=== PATIENT | female | born 1945 | race Caucasian/White ===

== ENCOUNTER 2025-09-21 10:57 | Emergency (ER) | payer MEDICARE, SELFPAY ==
[2025-09-21] VITALS (13 sets, daily range): BP systolic 129–185; BP diastolic 61–79; PULSE 60–87; RESP 14–16; TEMP 36.6; O2SAT 87–99; BMI 17.2
--- NOTE | 2025-09-21 11:11 | ED_ITS ---
HPI - General Adult General Chief complaint: Fall Stated complaint: Poss Lt broken hip Time Seen by Provider: 09/21/25 11:03 History of Present Illness HPI narrative: 80-year-old woman with a history of hypertension had a mechanical fall at home landing on her left hip on a tile floor. Unable to get off the floor. Complains of significant left hip pain. No other injuries Related Data Allergies Allergy/AdvReac Type Severity Reaction Status Date / Time Penicillins Allergy Verified 09/21/25 11:23 Review of Systems Review of Systems Narrative: Pertinent positive and negative findings as per HPI Exam Initial Vital Signs Initial Vital Signs: Vital Signs Temperature 97.9 F 09/21/25 11:20 Pulse Rate 81 09/21/25 11:20 Respiratory Rate 16 09/21/25 11:20 Blood Pressure 185/79 H 09/21/25 11:20 Pulse Oximetry 95 09/21/25 11:20 Oxygen Delivery Method Room Air 09/21/25 11:20 General: Slender to the point of frailty, in a wheelchair with left hip pain Able to give a complete and coherent history. HEENT: Moist mucous membranes, normal sclera with reactive pupils, Respiratory: Lungs are clear to auscultation, no wheezing no rales no rhonchi. Full and symmetrical air movement Cardiac: Regular rate and rhythm no murmurs no bruits Abdomen: Soft, nontender, no rebound or guarding, no flank pain No pelvic ring pain with manipulation. No tenderness to lumbar thoracic spine with palpation Skin: Warm and dry, Neurologic: Grossly neurologically intact with no obvious asymmetries or abnormalities Extremities: Left leg with tenderness with external rotation of the hip and inability to bear weight on this side Psych: Cooperative, appropriate insight and affect Course Orders Ordered: ED Orders 09/21/25 11:21 XR hip w pel LT 2V Stat 09/21/25 13:56 CT pelvis wo con Stat 09/21/25 14:48 Complete Blood Count AUTO DIFF Stat Comprehensive Metabolic Panel Stat 09/21/25 17:49 CBC Auto Diff [Complete Blood Count AUTO DIFF] Stat UA Complete [Urinalysis and Microscopic] Stat Fentanyl (Fentanyl 100 Mcg/2 Ml Inj) 12.5 mcg IV Q1H PRN PRN Reason: Pain, Severe (7-10) Last Admin: 09/21/25 17:07 Dose: 12.5 mcg Documented By: SB Discontinued Medications Hydromorphone HCl (Hydromorphone Hcl 0.5 Mg/0.5 Ml Syringe) 0.5 mg IV Q15MIN PRN PRN Reason: Pain, Last Admin: 09/21/25 11:44 Dose: 0.5 mg Documented By: SB Ondansetron HCl (Ondansetron 4 Mg/2 Ml Inj) 4 mg IV NOW ONE Stop: 09/21/25 11:59 Last Admin: 09/21/25 11:57 Dose: 4 mg Documented By: SB Vital Signs Vital signs: Vital Signs - 8 hr 09/21/25 11:20 09/21/25 13:47 09/21/25 14:00 Temperature 97.9 F Pulse Rate 81 71 75 Respiratory Rate 16 14 16 Blood Pressure 185/79 H 135/61 143/63 H Pulse Oximetry 95 87 L 99 Oxygen Delivery Method Room Air Room Air Nasal Cannula Oxygen Flow Rate 2 09/21/25 14:30 Temperature Pulse Rate 70 Respiratory Rate 14 Blood Pressure 146/65 H Pulse Oximetry 98 Oxygen Delivery Method Oxygen Flow Rate Medical Decision Making Lab Data 09/21/25 18:04 09/21/25 14:48 Labs: Lab Results 09/21/25 09/21/25 Range/Units 14:48 18:04 WBC 20.7 H 19.3 H (4.5-11.0) X10^3/uL RBC 4.95 4.77 (4.0-5.2) X10^6/uL Hgb 14.8 14.3 (12.0-16.0) g/dL Hct 44.5 42.9 (36-46) % MCV 89.9 89.8 (80-100) fL MCH 29.9 30.0 (26-34) PG MCHC 33.2 33.4 (30-36) % RDW 13.6 13.7 (11.6-14.8) % Plt Count 226 215 (150-400) X10^3/uL Neut % (Auto) 91.6 H 93.4 H (50-75) % Lymph % (Auto) 2.5 L 2.0 L (25-40) % [place] % (Auto) 5.5 4.5 (3-14) % Eos % (Auto) 0.0 L 0.0 L (2-4) % Baso % (Auto) 0.4 0.1 (0-2) % Neut # (Auto) 32297 H 03724 H (4311-0657) /uL Lymph # (Auto) 500 L 400 L (8825-6088) /uL [place] # (Auto) 1100 H 900 (0-900) /uL Eos # (Auto) 0 0 (0-450) /uL Baso # (Auto) 100 0 (0-100) /uL Sodium 139 (137-145) mmol/L Potassium 3.6 (3.4-5.1) mmol/L Chloride 104 (98-107) mmol/L Carbon Dioxide 26 (22-32) mmol/L BUN 22 H (7-17) mg/dL Creatinine 0.62 (0.52-1.04) mg/dL Estimated GFR > 60 (>60) mL/min BUN/Creatinine Ratio 35.5 H (6-22) Glucose 151 H (70-99) mg/dL Calcium 8.8 (8.4-10.2) mg/dL Total Bilirubin 0.9 (0.2-1.3) mg/dL AST 36 (14-36) IU/L ALT 19 (<35) IU/L Alkaline Phosphatase 46 (38-126) U/L Total Protein 7.4 (6.3-8.2) g/dL Albumin 4.3 (3.5-5.0) g/dL Globulin 3.1 (1.7-4.1) g/dL Albumin/Globulin Ratio 1.4 (1.0-2.8) Imaging Data CT hip: Radiologist's Impression: FINDINGS: Image quality: Diagnostic Bones: There is again seen acute fracture of the left proximal femur in the subcapital region, which is mildly displaced. Moderate degenerative changes of the left femoroacetabular joint. Pelvic rings are intact. Soft tissues: Left joint effusion is present. Sigmoid diverticulosis without acute inflammation. IMPRESSION: Acute left proximal femoral fracture. No intra-articular extension. Approved by: Deborah Samuel M.D.,Ph.D. on 09/21/2025 at 15:15 MDM Narrative Medical decision making narrative: CC: Mechanical fall onto her left hip Complicating co-morbidities: On no medications, not anticoagulated Data collected from: patient, daughter Differential considered: Hip fracture, pelvic fracture, contusion, bruises Exam documented above, pertinent findings include: Alert and appropriate. Pain in the left hip unable to bear weight no other injuries appreciated Lab Test results independently reviewed as above. Pertinent findings: [place] [id number] suspect that this is demargination as she has no other signs or symptoms of infection. Repeat CBC has been ordered Chemistries are reassuring Imaging studies independently reviewed: X-ray with left proximal subcapital femoral fracture CT scan of the hip confirms acute left proximal femur fracture with no intra- articular extension Consultations: Orthopedic doctor, reviewed x-rays as well as CT scan. 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 That procedure is not going to be possible at [facility] till ze Thursday of next week. You recommended transfer Discussion with ashtyn Parmar. Patient was accepted by the trauma team, . There will be an [facility] ED transfer he spoke with in the ED. patient is aware of current plans Treatments: Initially treated with half a mg of IV Dilaudid which was a bit too much pain medication left her feeling dizzy. Second dose of pain medication was 12.5 mg of fentanyl which seemed to be just right. She did have some mild nausea with the Dilaudid and was given Zofran Discussion: 80-year-old woman with a mechanical fall landing on her left hip on a tile floor with left proximal femur fracture that will need complete hip replacement. She is accepted by the trauma team at [facility] with an ED to ED transfer discussed with Dr. Kelly in the emergency department. Unexplained leukocytosis with no clinical evidence of infection. Urinalysis is currently pending. With no fevers and no clinical infection identified antibiotics are not initiated Patient is aware of findings, plans, recommendations for transfer. Pain has been adequately controlled and BLS transport will be arranged Discharge Plan Departure Patient Disposition: [facility] Clinical Impression: Closed hip fracture, Fall, Leukocytosis Referrals: Cleo Isabel [Other]
--- NOTE | 2025-09-21 11:13 | PC.NURSE ---
unable to locate at this time
--- NOTE | 2025-09-21 11:21 | DI.RAD.S_ITS ---
PROCEDURE: XR HIP W PEL IF DONE LT 2V INDICATIONS: left hip pain TECHNIQUE: AP pelvis with lateral view(s) of the left hip(s). COMPARISON: None. FINDINGS: Bones: Suspected left proximal femur fracture through the subcapital region. Moderate degenerative changes of the left hip. Pelvic ring appears intact. No suspicious bony lesions. Soft tissues: The visualized bowel gas pattern is normal. No suspicious soft tissue calcifications. IMPRESSION: Suspected left proximal subcapital femoral fracture. Approved by: Deborah Samuel M.D.,Ph.D. on 09/21/2025 at 13:27
[2025-09-21] MEDS: ONDANSETRON 4 MG/2 ML INJ IV (11:57)
--- NOTE | 2025-09-21 13:56 | DI.CT.S_ITS ---
PROCEDURE: CT PEL WO CON INDICATIONS: left hip fracture TECHNIQUE: Noncontrast 3 mm axial sections acquired through the bony pelvis, with coronal and sagittal reformatting. COMPARISON: Same-day hip radiographs 09/21/2025. FINDINGS: Image quality: Diagnostic Bones: There is again seen acute fracture of the left proximal femur in the subcapital region, which is mildly displaced. Moderate degenerative changes of the left femoroacetabular joint. Pelvic rings are intact. Soft tissues: Left joint effusion is present. Sigmoid diverticulosis without acute inflammation. IMPRESSION: Acute left proximal femoral fracture. No intra-articular extension. Approved by: Deborah Samuel M.D.,Ph.D. on 09/21/2025 at 15:15
[2025-09-21 14:55] LABS: Add Manual Diff / Slide Review NO; Hematocrit 44.5 % (36-46); Hemoglobin 14.8 g/dL (12.0-16.0); Lymphocytes Absolute Auto 500 /uL (1100-4500); Mean Corpuscular HGB Conc 33.2 % (30-36); Mean Corpuscular Hemoglobin 29.9 PG (26-34); Mean Corpuscular Volume 89.9 fL (80-100); Platelet Count 226 X10^3/uL (150-400)
[2025-09-21 15:13] LABS: Alanine Aminotransferase 19 IU/L (<35); Albumin 4.3 g/dL (3.5-5.0); Albumin Globulin Ratio 1.4 (1.0-2.8); Alkaline Phosphatase 46 U/L (38-126); Blood Urea Nitrogen 22 mg/dL (7-17); Calcium 8.8 mg/dL (8.4-10.2); Carbon Dioxide 26 mmol/L (22-32); Chloride 104 mmol/L (98-107); Estimated Glomerular Filt Rate > 60 mL/min (>60); Globulin 3.1 g/dL (1.7-4.1); Glucose 151 mg/dL (70-99); HEMOLYSIS 17 (0-50); Potassium 3.6 mmol/L (3.4-5.1); Sodium 139 mmol/L (137-145); Total Protein 7.4 g/dL (6.3-8.2)
[2025-09-21] MEDS: fentaNYL 100 MCG/2 ML INJ 12.5 MCG IV ×2 (17:07→19:12)
[2025-09-21 18:13] LABS: Add Manual Diff / Slide Review NO; Hematocrit 42.9 % (36-46); Hemoglobin 14.3 g/dL (12.0-16.0); Lymphocytes Absolute Auto 400 /uL (1100-4500); Mean Corpuscular HGB Conc 33.4 % (30-36); Mean Corpuscular Hemoglobin 30.0 PG (26-34); Mean Corpuscular Volume 89.8 fL (80-100); Platelet Count 215 X10^3/uL (150-400)
== END 2025-09-21 20:00 | disposition short-term general hospital (02) ==
PROVIDERS: Emergency Provider Emergency Medicine
DX: S72.012A Unspecified intracapsular fracture of left femur, initial encounter for closed fracture (principal); D72.829 Elevated white blood cell count, unspecified; I10 Essential (primary) hypertension; W18.39XA Other fall on same level, initial encounter
CPT/HCPCS: 36415; 72192; 73502; 80053; 85025; 96374; 96375; 99284; J1171; J2405; J3010